=== PATIENT | male | born 1980 | race Caucasian/White ===

== ENCOUNTER 2016-09-19 23:31 | Emergency (ER) | payer SELFPAY | END 2016-09-20 06:19 | disposition home or self-care (01) | LOC: ER1 23:31 | DX: J11.1 Influenza due to unidentified influenza virus with other respiratory manifestations (principal); Z88.5 Allergy status to narcotic agent | CPT/HCPCS: 71020; 87081; 87880; 99283 ==

== ENCOUNTER 2016-11-16 03:28 | Emergency (ER) | payer BC ==
[2016-11-16 04:44] LABS: HEMOGLOBIN 15.1 gm/dl (14.0-17.5); RED BLOOD COUNT 4.9 M/UL (4.20-5.50); WHITE BLOOD COUNT 9.1 K/UL (4.5-11.0)
[2016-11-16 05:08] LABS: BUN/CREATININE RATIO 26 (0-10)
== END 2016-11-16 06:00 | disposition home or self-care (01) ==
LOC: ER1 03:28
PROVIDERS: Emergency Medicine
DX: B34.9 Viral infection, unspecified (principal); R07.9 Chest pain, unspecified
CPT/HCPCS: 36415; 74022; 80053; 83690; 84484; 85025; 93005; 99284

== ENCOUNTER 2016-12-17 03:22 | Emergency (ER) | payer BC | END 2016-12-17 08:25 | disposition home or self-care (01) | LOC: ER1 03:22 | DX: R51 Headache (principal); R68.84 Jaw pain; Z88.5 Allergy status to narcotic agent | CPT/HCPCS: 70450; 70486; 96374; 96375; 99284; J1200; J2765; J7030; J7050 ==

== ENCOUNTER 2021-02-02 10:53 | Emergency (ER) | payer BC, OTHER ==
[~2021-02-02 10:53] MED LIST: NORCO 5-325 TA1 EACH PO
[2021-02-02 11:35] LABS: HEMOGLOBIN 14.5 gm/dl (14.0-17.5); RED BLOOD COUNT 4.67 M/UL (4.20-5.50); WHITE BLOOD COUNT 9.3 K/UL (4.5-11.0)
[2021-02-02 12:13] LABS: BUN/CREATININE RATIO 14 (0-10)
== END 2021-02-02 14:48 | disposition home or self-care (01) ==
LOC: ER1 10:53
PROVIDERS: Emergency Medicine
DX: U07.1 COVID-19 (principal)
CPT/HCPCS: 36600; 70450; 71045; 80053; 82550; 82553; 82803; 83874; 84484; 85025; 85379; 93005; 94640; 94664; 94760; 99284

== ENCOUNTER 2021-04-11 11:56 | Emergency (ER) | payer BC ==
[2021-04-11 13:28] LABS: BUN/CREATININE RATIO 13 (0-10)
[2021-04-11 13:41] LABS: HEMOGLOBIN 14.1 gm/dl (14.0-17.5); RED BLOOD COUNT 4.66 M/UL (4.20-5.50); WHITE BLOOD COUNT 8.5 K/UL (4.5-11.0)
== END 2021-04-11 16:12 | disposition home or self-care (01) ==
LOC: ER1 11:56
PROVIDERS: Nurse Practitioner
DX: R07.9 Chest pain, unspecified (principal); R00.2 Palpitations; Z88.8 Allergy status to other drugs, medicaments and biological substances
CPT/HCPCS: 71045; 80053; 82550; 82553; 83874; 84484; 85025; 85379; 93005; 99285; J7030

== ENCOUNTER 2021-04-19 11:31 | Emergency (ER) | payer BC ==
[2021-04-19 13:13] LABS: HEMOGLOBIN 16.8 gm/dl (14.0-17.5); RED BLOOD COUNT 5.34 M/UL (4.20-5.50); WHITE BLOOD COUNT 7.5 K/UL (4.5-11.0)
[2021-04-19 13:49] LABS: BUN/CREATININE RATIO 14 (0-10)
[2021-04-19] MEDS ORDERED: BUSPIRONE HCL5 MG PO (17:23)
== END 2021-04-19 17:50 | disposition home or self-care (01) ==
LOC: ER1 11:31
PROVIDERS: Student in an Organized Health Care Education/Training Program
DX: R07.89 Other chest pain (principal); R00.2 Palpitations
CPT/HCPCS: 71045; 80053; 82550; 82553; 83874; 84484; 85025; 93005; 99285; Q0177